=== PATIENT | male | born 1955 | race Caucasian/White ===

== ENCOUNTER 2024-12-12 09:08 | Day surgery (SDC) | payer MEDICARE, BC ==
[~2024-12-12] VITALS: Ht 182.9 cm; Wt 88.6 kg
[~2024-12-12 09:08] MED LIST: IBLOOD GLUCOSE TEST STRIP 1 EA TEST VI PRN; LACTATED RINGER'S 1,000 ML IV SCH; LIDOCAINE HCL 1% 5 ML SDV INJ ONE; ZESTRIL10 MG PO
[2024-12-12 10:15] VITALS: BP 133/75
[2024-12-12 11:02] LABS: BASOPHILS 0.5 % (0-2); EOSINOPHILS 0.9 % (0-6); HEMATOCRIT 43.4 % (35.0-50.0); LYMPHOCYTES 13.9 % (24-44); MCH 30.7 (27-36); MCHC 34.5 g/dl (30-36); MCV 88.9 fl (81-99); MONOCYTES 12.1 % (0-12); NEUTROPHILS 72.6 % (39-80); PLATELET COUNT 189 K/uL (140-440); RBC 4.88 M/ul (4.3-5.7); RDW 14.3 (10.5-15.0)
[2024-12-12 11:05] LABS: ALBUMIN 4.5 g/dL (3.4-5.0); ALBUMIN/GLOBULIN RATIO 1.15 (1.1-2.4); ANION GAP 12.2 (7-21); BILIRUBIN, TOTAL 0.8 mg/dL (0.2-1.0); BUN/CREATININE RATIO 13.6 (6.0-28.6); CALCIUM 9.8 mg/dL (8.5-10.1); CREATININE, SERUM 1.25 mg/dL (0.70-1.30); POTASSIUM 4.2 mmol/L (3.5-5.1); PROTEIN, TOTAL 8.4 g/dL (6.4-8.2)
--- NOTE | 2024-12-12 12:52 | NUR ---
1205: CHECKED PATIENT. PATIENT RESTING ON STRETCHER. NOTIFIED OF CONTINUED DELAY OF PROCEDURE. NO NEEDS AT THIS TIME. CALL LIGHT WITHIN REACH.
--- NOTE | 2024-12-12 13:49 | NUR ---
1340: CHECKED PATIENT. NO NEEDS AT THIS TIME. IN ROOM WITH PATIENT. NOTIFIED THAT PROCEDURE STILL DELAYED FOR A WHILE. CALL LIGHT WITHIN REACH.
[2024-12-12] MEDS ORDERED: propofoL 200 MG/20 ML VIAL ONE (14:30)
[2024-12-12] MEDS ORDERED: LIDOCAINE HCL 2% 5 ML SDV ONE (14:30)
[2024-12-12 15:46] VITALS: BP 135/75
--- NOTE | 2024-12-12 16:19 | NUR ---
12/12/24 1619 Anayeli,Carmela 1521 PT ARRIVED TO PACU ON ON 6L VIA MASK, PT ASLEEP AND RESP EVEN AND UNLABORED. VSS. 1535 PT WOKE AND O2 REMOVED, PT ROLLED TO HIS BACK AND REORIENTED TO PACU.
--- NOTE | 2024-12-13 10:56 | EKG ---
[facility] [address] [facility] [place], [place] [address] Signed Normal sinus rhythm Normal ECG No previous ECGs available Confirmed by Meeta Bazan DO ([id number]) on 12/13/2024 10:56:06 AM Electronically Signed By: MEETA BAZAN DO 12/13/24 1056 PATIENT NAME: JUAN HERNANDEZ Electrocardiogram DATE OF : 57 PHYSICIAN: MEETA BAZAN DO REPORT #: [id number] REPORT IS CONFIDENTIAL AND NOT TO BE RELEASED WITHOUT AUTHORIZATION
--- NOTE | 2024-12-14 11:19 | OR ---
[facility] [address] [place], [place] [address] Signed DATE OF OPERATION: 12/12/2024 SURGEON: Stacie Carrillo MD PREOPERATIVE DIAGNOSIS: Followup screening colonoscopy. POSTOPERATIVE DIAGNOSIS: Normal colonoscopy. PROCEDURE: Total colonoscopy. ANESTHESIA: MAC. PROCEDURE IN DETAIL: After obtaining informed consent, the patient was taken to the operating room where he was placed in the left lateral decubitus position. The anus was then inspected thoroughly and a rectal exam was performed. At this point, a previously lubricated an Olympus scope was then inserted in the rectum, advanced all the way into the cecum without any significant difficulty. The quality of prep was excellent and at this point, we went ahead and pulled the scope back with a pullback time of about 10 minutes achieving an adequate circumferential visualization of the entire colon. At the level of rectum, the rectum was also visualized nicely and no significant pathology was noted either. The patient tolerated the procedure, was then sent to the recovery room in good and stable condition. Followup recommendations at this point, will be to followup with colonoscopy in 10 years. MD LATRICIA Contreras/EDUARD /[id number] Electronically Signed By: STACIE CARRILLO MD 12/14/24 1119 PATIENT NAME: JUAN HERNANDEZ OPERATIVE REPORT DATE OF : 57 REPORT #: [id number] PHYSICIAN: STACIE CARRILLO MD PCP: NAGA PRESCOTT DO REPORT IS CONFIDENTIAL AND NOT TO BE RELEASED WITHOUT AUTHORIZATION [address] [address] Signed Copies: ~ Electronically Signed By: STACIE CARRILLO MD 12/14/24 1119 PATIENT NAME: JUAN HERNANDEZ OPERATIVE REPORT DATE OF : 57 REPORT #: [id number] PHYSICIAN: STACIE CARRILLO MD PCP: NAGA PRESCOTT DO REPORT IS CONFIDENTIAL AND NOT TO BE RELEASED WITHOUT AUTHORIZATION
== END 2024-12-12 15:59 | disposition home or self-care (01) ==
LOC: DS 09:08
PROVIDERS: Nurse Anesthetist, Certified Registered; ATTEND Transplant Surgery
PROC: 0DJD8ZZ Inspection of Lower Intestinal Tract, Via Natural or Artificial Opening Endoscopic (ICD-10-PCS; principal; 2024-12-12 10:30)
DX: Z12.11 Encounter for screening for malignant neoplasm of colon (principal); E78.5 Hyperlipidemia, unspecified; I10 Essential (primary) hypertension; K64.8 Other hemorrhoids; Z88.2 Allergy status to sulfonamides
CPT/HCPCS: 00811; 36415; 80053; 85025; 93005; 93010; J2003; J2704; J7121